=== PATIENT | male | born 1980 | race Caucasian/White ===

== ENCOUNTER 2018-09-22 17:28 | Emergency (ER) | payer SELFPAY ==
[~2018-09-22] VITALS: Ht 175.3 cm; Wt 80.0 kg
[2018-09-22] MEDS ORDERED: OLANZAPINE 5MG TABLET ODT PO ONE (18:45)
[2018-09-22 19:28] LABS: BASOPHILS % 0.5 % (0.0-2.0); HEMATOCRIT. 43.9 % (42.0-52.0); HEMOGLOBIN. 15.2 g/dL (14.0-18.0); LYMPHOCYTES % 26.8 % (20.0-50.0); MEAN CORPUSCULAR HEMOGLOBIN 32.1 pg (28.0-32.0); MEAN CORPUSCULAR VOLUME 92.8 fL (80.0-94.0); MONOCYTES % 9.3 % (2.0-8.0); NEUTROPHILS % 61.4 % (40.0-76.0); PLATELET 312 x1000/uL (130-400); RED BLOOD CELL COUNT 4.73 mill/uL (4.7-6.1); RED CELL DISTRIBUTION WIDTH 13.5 % (11.6-14.6)
[2018-09-22 19:29] LABS: CLARITY URINE CLEAR (CLEAR); COLOR URINE YELLOW (YELLOW); KETONES URINE 2+ (NEGATIVE); LEUKOCYTE ESTERASE URINE NEGATIVE (NEGATIVE); NITRITE URINE NEGATIVE (NEGATIVE); OCCULT BLOOD URINE NEGATIVE (NEGATIVE); PH URINE 6.5 (4.5-8.0); PROTEIN URINE NEGATIVE (NEGATIVE); SPECIFIC GRAVITY URINE 1.018 (1.005-1.030)
[2018-09-22 19:34] LABS: CHLORIDE 105 mEq/L (98-107)
[2018-09-22 19:39] LABS: ETHANOL BLOOD < 10 mg/dL
[2018-09-22 19:43] LABS: CREATINE KINASE 426 IU/L (39-308)
[2018-09-22 19:47] LABS: *AMPHETAMINES SCREEN URINE PRESUMTIVE POSITIVE (NEGATIVE); OPIATES URINE SCREEN NEGATIVE (NEGATIVE)
[2018-09-22 19:48] LABS: *BARBITURATES SCREEN URINE NEGATIVE (NEGATIVE); *COCAINE SCREEN URINE NEGATIVE (NEGATIVE); PHENCYCLIDINE URINE SCREEN NEGATIVE (NEGATIVE)
[2018-09-22 19:49] LABS: CANNABINOID URINE SCREEN PRESUMTIVE POSITIVE (NEGATIVE); METHADONE URINE SCREEN NEGATIVE (NEGATIVE)
[2018-09-22 19:55] LABS: *BENZODIAZEPINES SCREEN URINE NEGATIVE (NEGATIVE)
[2018-09-23] MEDS ORDERED: OLANZAPINE 10 MG/VIAL IM ONE (04:00)
[2018-09-23 08:35] VITALS: BP 130/76
== END 2018-09-23 10:00 | disposition left against medical advice (07) ==
LOC: ER 17:28
DX: R45.851 Suicidal ideations (principal); Z91.14 Patient's other noncompliance with medication regimen; R45.1 Restlessness and agitation; Z78.1 Physical restraint status
CPT/HCPCS: 36415; 80053; 80305; 80307; 80329; 81003; 82550; 85025; 93005; 96372; 99284; G0482; J3490